=== PATIENT | male | born 1940 | race Two or more races ===

== ENCOUNTER 2025-02-01 17:12 | Emergency (ER) | payer MEDICARE ==
[~2025-02-01] VITALS: Ht 175.3 cm; Wt 104.5 kg
[2025-02-01 17:45] LABS: PLATELET COUNT (AUTO) 143 K/uL (150-450); RED BLOOD CELL COUNT(AUTO) 4.66 MIL/uL (4.50-5.90); RED CELL DISTRIBUTION WIDTH 14.9 % (11.5-14.5); WHITE BLOOD COUNT (AUTO) 7.4 K/uL (4.5-11.0)
[2025-02-01] MEDS ORDERED: IOHEXOL 350 MG/ML 100 ML VIAL ONE (17:46)
[2025-02-01] MEDS ORDERED: SODIUM CHLORIDE 0.9% 100 ML ONE (17:46)
[2025-02-01] MEDS ORDERED: 0.9% SODIUM CHLORIDE 10 ML SYRINGE IVP ONE (17:46)
[2025-02-01 17:54] LABS: CALCIUM, TOTAL 8.7 mg/dL (8.8-10.5); CREATININE 0.78 mg/dL (0.60-1.30); GLOMERULAR FILTR. RATE CALC > 60 mL/min (>60); GLUCOSE,RANDOM 366 mg/dL (70-110); SODIUM SERUM 133 mmol/L (136-145); UREA NITROGEN, BLOOD 15 mg/dL (7-18)
[2025-02-01 17:58] LABS: ASPARTATE AMINOTRANSFERASE 24 U/L (15-37); CHOL/HDL RATIO 2.5 (4.2-7.3); LDL CHOL (CALC.) 46.0 mg/dL (0-130); TOTAL PROTEIN, SERUM 7.5 g/dL (6.4-8.2)
[2025-02-01 18:01] LABS: TROPONIN I-HIGH SENSITIVITY 13 ng/L (<76)
[2025-02-01] MEDS: SODIUM CHLORIDE 0.9% 1,000 ML IV ONE (18:01)
[2025-02-01 18:06] LABS: ALCOHOL, BLOOD (SERUM) < 3 mg/dL (0-10)
[2025-02-01] MEDS: TENECTEPLASE PER STROKE PROTOCOL CLINICAL ONE (18:16)
[2025-02-01 19:10] VITALS: TEMP 97.7
[2025-02-01 19:55] LABS: APPEARANCE,URINE CLEAR (CLEAR); GLUCOSE, URINE (UA) >=1000 mg/dL (NEGATIVE); LEUKOCYTE ESTERASE ,URINE NEGATIVE (NEGATIVE); NITRATE,URINE NEGATIVE (NEGATIVE); OCCULT BLOOD,URINE TRACE (NEGATIVE); PH,URINE DRUG SCREEN 7.5 (5.0-8.0)
[2025-02-01 20:00] LABS: ALCOHOL, URINE DRUG SCREEN NEGATIVE (NEGATIVE); AMPHET/METH SCREEN,URINE NEGATIVE (NEGATIVE); BARBITURATE SCREEN, URINE NEGATIVE (NEGATIVE); CANNABINOID SCREEN,URINE NEGATIVE (NEGATIVE); COCAINE SCREEN,URINE NEGATIVE (NEGATIVE); METHADONE SCREEN, URINE NEGATIVE (NEGATIVE); SPECIFIC GRAVITIY, URINE 1.030 (1.003-1.030)
[2025-02-01 20:06] LABS: SQUAMOUS EPITHELIAL CELL,UR Few /LPF (None Seen)
[2025-02-01 20:17] VITALS: BP 143/71; PULSE 70; RESP 16; O2SAT 99
[2025-02-01 21:00] LABS: GLUCOMETER DEV NAME(LOC) ER.7; GLUCOSE,POINT OF CARE 329 MG/DL (70-110)
== END 2025-02-01 23:23 | disposition short-term general hospital (02) ==
LOC: EMS 17:24
DX: I63.9 Cerebral infarction, unspecified (principal); R29.810 Facial weakness; R47.01 Aphasia; E11.9 Type 2 diabetes mellitus without complications
CPT/HCPCS: 99291; 70450; 96374; 71045; 96361; 80061; 80053; 81001; 82962; 83036; 83735; 84484; 85025; 85610; 85730; 86850; 86900; 86901; 36415; 93005; 80307; 70496; G0480; Q9967; J7030; J7050; 82948; 96360